=== PATIENT | male | born 2000 | race Caucasian/White ===

== ENCOUNTER 2020-08-16 21:53 | Emergency (ER) | payer OTHER ==
[~2020-08-16] VITALS: Ht 175.3 cm; Wt 66.7 kg
== END 2020-08-16 23:41 | disposition home or self-care (01) ==
LOC: ED 21:53
DX: S00.83XA Contusion of other part of head, initial encounter (principal); F15.10 Other stimulant abuse, uncomplicated; X58.XXXA Exposure to other specified factors, initial encounter; Z88.8 Allergy status to other drugs, medicaments and biological substances
CPT/HCPCS: 70486; 99283-25; A9270

== ENCOUNTER 2020-08-17 16:25 | Inpatient (IN) | payer OTHER ==
[~2020-08-17] VITALS: Ht 175.3 cm; Wt 68.3 kg
--- OUTSIDE RECORDS SUMMARY | 2020-08-17 17:12 | XMS ---
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 Alex has no Care Guidelines for this patient. [facility] MO.) [facility] NOTE: Visits indicate total known visits. ED[facility] (12 MO.) [facility] COMPLAINT: - FACIAL PAIN 08/16/2020 21:55 [facility] [place] TYPE: Emergency COMPLAINT: - RT SHOULDER AND BACK PAIN/ NON INJ INPATIENT VISIT TRACKING (12 MO.) No inpatient visits to display in this time frame [id number]
--- NOTE | 2020-08-17 23:08 | NUR ---
PT ARRIVED AT 2232 AND WAS ALREADY MOVED OVER TO BED WHEN HIS RN ENTERED THE ROOM. HE IS RESTING WITH EYES CLOSED, RR EVEN AND NONLABORED. WHEN EXPLAINING TO PT THAT WE NEED TO TAKE HIS VS HE DID SAY SOMETHING QUIETLY UNDER HIS BREATH, OTHERWISE PT WOULD NOT ANSWER QUESTIONS THIS RN ASKED. HE LET US START HIS IV ABX AND CHECK HIS VS, WITHOUT OPENING HIS EYES OR RESPONDING. CALL LIGHT IS NEXT TO PT AT THIS TIME AND IV ABX ARE INFUSING.
--- NOTE | 2020-08-18 00:30 | NUR ---
IN ROOM TO COMPLETE ASSESSMENT, IV ABX INFUSING PER MD ORDERS. IV SITE WNL. pt RESTING IN BED WITH EYES CLOSED. RR EVEN AND UNLABORED, NO DISTRESS NOTED. pt APPEARS COMFORTABLE AT THIS TIME, WILL MONITOR FOR CHANGES. CALL LIGHT IN REACH.
--- NOTE | 2020-08-18 01:35 | NUR ---
PRN PAIN MEDICATION GIVEN FOR 3/10 PAIN IN RIGHT JAW AND NECK. pt DENIES DIFFICULTY SWALLOWING, pt UP SBA TO VOID IN BATHROOM AND IS BACK IN BED. SNACK PROVIDED PER REQUEST. MRSA PCR (NASAL SWAB) LAB COLLECTED AND SENT TO LAB. DISCUSSED NEEDED NASAL SWAB WITH GORDON FROM LAB, PER GORDON, RED TOP WILL WORK AND WAS PROVIDED FROM LAB. NO ADDITIOANL NEEDS AT THIS TIME, CALL LIGHT IN REACH.
--- NOTE | 2020-08-18 03:39 | NUR ---
pt RESTING IN BED, HOB ELEVATED. EYES CLOSED, RR EVEN AND UNLABORED, NO DISTRESS NOTED. CALL LIGHT IN REACH. IV ABX INFUSING PER MD ORDERS, SITE REMAINS WNL.
--- NOTE | 2020-08-18 06:30 | NUR ---
scheduled iv abx infusing per md orders, site wnl. assessment complete, generalized edema remains noted to right neck/jaw, when asked if swelling is worse, pt states drowsily , "it's gaining". pt also states, "sometimes" when asked if he has difficulty swallowing, but then quickly drifts off to sleep while asked follow-up questions such as pain. no distress noted, rr even and unlabored, o2 sat upper 90's on ra. snoring remains noted at bedside. hob remains elevated. no further needs, call light in reach.
--- NOTE | 2020-08-18 08:00 | NUR ---
IN TO HANG IV CONO. PT EASILY AWAKENED. ALERT AND ORIENTED. INCREASE RIGHT SIDED FACIAL SWELLING. PT DENIES SOB AND DIFFICULTY SWALLOWING. REQUESTING BREAKFAST, ORDERED. PT REPORTS 7/10 PAIN IN JAW. REQUESTING PAIN MEDICATION.
--- NOTE | 2020-08-18 09:22 | NUR ---
MED REC COMPLETE
--- NOTE | 2020-08-18 09:36 | NUR ---
PT GIVEN OXYCODONE AND TYLENOL FOR 8/10 RT JAW PAIN. CEFEPIME INFUSION STARTED, VANCO COMPLETE. PT TOLERATED REGULAR DIET WELL. DENIES NAUSEA. LUNG SOUNDS ARE CLEAR. PT INDEPENDENT IN THE ROOM, STABLE ON FEET. INAPPROPRIATE RESPONSES AT TIMES SUCH LAUGHING FOR NO REASON TO QUESTIONS ABOUT BACKGROUND. CALL LIGHT IN REACH, PT VERBALIZED UNDERSTANDING AND DENIES FURTHER NEEDS.
--- NOTE | 2020-08-18 10:17 | NUR ---
PATIENT RESTING IN BED, EYES CLOSED. PATIENT WOKE TO VOICE, VITALS AND I&OS CHARTED. CALL LIGHT IN REACH, NO OTHER NEEDS AT THIS TIME
--- NOTE | 2020-08-18 12:22 | NUR ---
ACCESS SERVICES REPRESENTATIVE YVETTE REQUESTED I NOT DISTURB PT AT THIS TIME.WILL FOLLOW NEEDED
--- NOTE | 2020-08-18 13:23 | NUR ---
PT GIVEN PO POTASSIUM. IV ROCEPHIN INFUSING. VSS. PT HAS HAD 2 LARGE UNMEASURED VOIDS THIS SHIFT, MISSED HAT IN TOILET. PAIN WELL MANAGED W/ ORAL PAIN MEDS AT THIS TIME. PT IS WITHOUT COMPLAINT. SWELLING IN RIGHT FACE/JAW REMAINS UNCHANGED.
--- NOTE | 2020-08-18 16:21 | NUR ---
IV VANCO INFUSING. PT SLEEPING, EASILY AWAKENED BY NOISE, ORIENTED X4. DENIES FURTHER NEEDS. ADEQUATE PO FLUID INTAKE. CALL LIGHT IN REACH. WATER REFRESHED.
--- NOTE | 2020-08-18 19:35 | NUR ---
SHIFT REPORT RECEIVED FROM DAYSHIFT KATLIN MENESES AT BEDSIDE. pt RESTING QUIETLY ON RA, EYES CLOSED. RR EVEN AND UNLABORED, NO DISTRESS NOTED, pt REPORTS SOME DISCOMFORT, BUT NO DISTRESS IS NOTED. NO NEEDS AT THIS TIME, CALL LIGHT IN REACH.
--- NOTE | 2020-08-18 22:15 | NUR ---
IN TO GET VITALS, PT UP TO VOID RECNETLY, NO FURTHER NEEDS AT THIS TIME
--- NOTE | 2020-08-18 22:30 | NUR ---
ASSESSMENT COMPLETE, VSS. pt DROWSY BUT AWOKE TO VOICE, REPORTS 6/10 PAIN IN RIGHT JAW/NECK, DENIES NEED FOR PAIN MEDICATION AT THIS TIME, WILL MONITOR. SWELLING APPEARS TO BE IMPROOVING, WILL CONTINUE TO MONITOR. SCANT LEAKING NOTED WITH IV SITE, HUB TIGHTENED AND DRESSING REMOVED TO FURTHER ASSESS, SITE ALSO ASSESSED BY MANAGER WEB APPLICATION LESTER. SITE FLUSHED WITH MULTIPLE FLUSHES, NO LEAKING OR INFILTRATION NOTED, IV ABX STARTED AND WORKING WNL. EDUCATION GIVEN ON S/SX OF INFILTRATION, pt VERBALIZED UNDERSTANDING. NO FURTHER NEEDS, CALL LIGHT IN REACH.
--- NOTE | 2020-08-18 22:50 | NUR ---
IV ABX CONTINUES TO INFUSE, SITE REMAINS WNL. CALL LIGHT IN REACH.
--- NOTE | 2020-08-19 | NUR ---
SCHEDULED VANCO INFUSING, SEE EMAR. IV SITE WNL AND FLUSHES EASILY. pt REPORTS FEELING IF HIS RIGHT JAW IS MORE TIGHT, EDUCATION PROVIDED ON THE INFECTION PROCESS. HOB ELEVATED, AIRWAY PATENT, O2 SAT 100% ON RA WITH EVEN AND UNLABORED BREATHING. pt DECLINES ICE PACK AND NEED FOR PAIN MEDICATION. SNACK PROVIDED PER pt REQUEST, CALL LIGHT IN REACH.
--- NOTE | 2020-08-19 01:15 | NUR ---
IV VANCO COMPLETE, SITE WNL AND FLUSHES EASILY. NO ADDITIONAL NEEDS AT THIS TIME. CALL LIGHT IN REACH.
--- NOTE | 2020-08-19 04:31 | NUR ---
pt RESTING IN BED WITH EYES CLOSED, RR EVEN AND UNLABORED. NO DISTRESS NOTED, CALL LIGHT IN REACH.
--- NOTE | 2020-08-19 06:35 | NUR ---
IV ABX INFUSING, SITE WNL. ASSESSMENT COMPLETE, NO NEW CHANGES OR CONCERNS. SWELLING APPEARS TO BE IMPROVED COMPARED TO START OF SHIFT. NO FURTHER NEEDS, CALL LIGHT IN REACH.
--- NOTE | 2020-08-19 08:00 | NUR ---
NEW IV STARTED BY ODILON RINCON RN TROUGH DRAWN. TROUGH 9.4, DOSE ADJUSTED BY PHARMACY.
--- NOTE | 2020-08-19 09:00 | NUR ---
VANCO INFUSION STARTED. PT GIVEN 5 MG OXYCODONE FOR 10 RT JAW PAIN. PT SLEEPY THIS AM, EASILY AWAKENED, A&O X4. INDEPENDENT IN ROOM HE IS STEADY ON HIS FEET. VSS. PT REMAINS AFEBRILE. GOOD APPETITE. URINE OUTPUT SUFFICIENT. CALL LIGHT IN REACH AND PT DOES CALL APPROPRIATELY.
--- NOTE | 2020-08-19 10:39 | NUR ---
PATIENT IN BED RESTING WITH EYES CLOSED. PATIENT REFUSED AM CARE. VITALS AND I&O'S CHARTED. CALL LIGHT IN REACH. NO FURTHER NEEDS AT THIS TIME.
--- NOTE | 2020-08-19 12:00 | NUR ---
IN TO HANG IV ROCEPHIN, PT AWAKE. LUNCH ORDERED. WATER REFRESHED. CALL LIGHT IN REACH.
--- NOTE | 2020-08-19 13:55 | NUR ---
ROCEPHIN INFUSION COMPLETE. FLAGYL INFUSION STARTED, LFA IV REMAINS PATENT, SITE WNL. PT IS W/OUT COMPLAINT AT THIS TIME AND DENIES FURTHER NEEDS. HAS BEEN AMBULATING IN ROOM TODAY INDEPENDENTLY. CALLS APPROPRIATELY WHEN NEEDED.
--- NOTE | 2020-08-19 16:16 | NUR ---
IN TO DANIELITO DONALD, PT REQUESTING TO [facility]. IV COVERED AND PT SET UP FOR SHOWER AND PROVIDED OTHER TOILETRIES.
--- NOTE | 2020-08-19 18:00 | NUR ---
LFA IV INFILTRATED, VANCO INFUSION STOPPED. IV REMOVED. NEW 20 G IV STARTED IN RIGHT WRIST. VANCO INFUSION CONTINUED. VSS. I/O'S CHARTED. PT GIVEN 10 MG OXYCODONE FOR WORSENING RIGHT JAW PAIN 11/17. WILL CONTINUE TO MONITOR.
--- NOTE | 2020-08-19 19:20 | NUR ---
SHIFT REPORT RECEIVED FROM HARSHCAZANE MENESES AT BEDSIDE, pt AWAKE AND RESTING IN BED, DENIES NEEDS AT THIS TIME. IV SITE WNL, SALINE LOCKED. CALL LIGHT IN REACH.
--- NOTE | 2020-08-19 22:30 | NUR ---
ASSESSMENT COMPLETE, SCHEDULED MEDS GIVEN ALONG WITH PRN PAIN MEDICATION FOR 5-6/10 PAIN, SEE EMAR. VSS, pt AWOKE TO VOICE, A/OX4. IV ABX INUSING PER MD ORDERS, SITE WNL AND FLUSHES EASILY. NO DIFFICULTY SWALLOWING VERBALIZED, tp APPEARS COMFORTABLE AND IS COMPLIANT AT THIS TIME WITH CARE. CALL LIGHT IN REACH.
--- NOTE | 2020-08-19 23:04 | NUR ---
ABX COMPLETE, pt SALINE LOCKED. SITE WNL, NO ADDITIONAL NEEDS VERBALIZED.
--- NOTE | 2020-08-20 00:03 | NUR ---
scheduled vanco infusing per md orders, iv site wnl. brisk blood return noted. no further needs at this time, rr even and unlabored. board updated, call light in reach.
--- NOTE | 2020-08-20 00:57 | NUR ---
iv abx continues to infuse per md orders, site remains wnl. urinal emptied, no further needs, call light in reach.
--- NOTE | 2020-08-20 02:30 | NUR ---
ABX COMPLETE, SITE WNL. ASSESSMENT COMPLETE. pt REPORTS TOLABLE 5/10 PAIN, DENIES NEED FOR PAIN MEDICATION. ASSESSMENT COMPLETE, NO NEW CHANGES OR CONCERNS. CALL LIGHT IN REACH.
--- NOTE | 2020-08-20 04:51 | NUR ---
pt RESTING IN BED WITH EYES CLOSED, RR EVEN AND UNLABORED. CALL LIGHT IN REACH.
--- NOTE | 2020-08-20 06:20 | NUR ---
SCHEDULED IV ABX INFUSING, SITE WNL. VSS AND I&O'S COMPLETE. NO FURTHER NEEDS, CALL LIGHT IN REACH.
--- NOTE | 2020-08-20 06:48 | NUR ---
IV ABX COMPLETE, SITE WNL. NO NEEDS AT THIS TIME. CALL LIGHT IN REACH.
--- NOTE | 2020-08-20 07:13 | NUR ---
PT APPEARS TO BE SLEEPING SOUNDLY AT TIME OF SHIFT EXCHANGE. LEFT UNDISTURBED.
[2020-08-20] MEDS ORDERED: CLINDAMYCIN HC300 MG PO (09:04)
[2020-08-20] MEDS ORDERED: CIPROFLOXACIN500 MG PO (09:05)
[2020-08-20] MEDS ORDERED: OXYCODONE HCL5 MG PO (09:06)
--- NOTE | 2020-08-20 09:27 | NUR ---
PT AWAKENS TO VOICE CONVERSES APPROPRIATELY. MORNING MEAL ORDERED PT ANNOUNCES HE IS GOING BACK TO SLEEP.
--- NOTE | 2020-08-20 10:04 | NUR ---
IN TO TALK TO PT ABOUT PLAN FOR DISCHARGE. PT REPORTS HE HAS [place] [facility] AND W[facility]. PHARMACY NOTIFIED. PT REPORTS HE [place] NOT HAVE A PRIMARY CARE DOCTOR AND DOES NOT HAVE A CELL PHONE TO RECIEVE OR MAKE CALLS. [facility]. TOLD PT TO FOLLOW UP AT URGENT CARE OR WALK IN CLINIC IN TEN DAYS. PT AGREES HE WILL.
== END 2020-08-20 10:40 | disposition home or self-care (01) | DRG 156 ==
LOC: ED 16:25 → MS 21:21
PROVIDERS: ADMIT Student in an Organized Health Care Education/Training Program; ATTEND Student in an Organized Health Care Education/Training Program
DX: K11.21 Acute sialoadenitis (principal); F90.9 Attention-deficit hyperactivity disorder, unspecified type; Z20.822 Contact with and (suspected) exposure to COVID-19; Z88.8 Allergy status to other drugs, medicaments and biological substances
CPT/HCPCS: 70491; 80053; 80202; 85025; 96375; 99285-25; C9803; J0692; J0696; J1630; J1650; J1885; J3370; J3490; J7030; J7060; Q9967; U0003